=== PATIENT | male | born 1990 | race African-American/Black ===

== ENCOUNTER → 2022-01-07 | Outpatient (CLI) | payer OTHER ==
--- NOTE | 2022-01-07 15:12 | RAD ---
EXAMINATION: US THYROID INDICATION: Thyrotoxicosis. COMPARISON: None. Technique: Real-time grayscale and color Doppler imaging of the thyroid gland was performed per tam col. Findings: The right thyroid lobe measures: 5.0 x 2.6 x 2.1 cm. The left thyroid lobe measures: 5.5 x 2.3 x 2.2 cm. The isthmus measures: 7.4 mm. The thyroid parenchyma is diffusely heterogeneous and hypervascular. No discrete nodule is seen. IMPRESSION: Mildly enlarged and diffusely heterogeneous and hypervascular thyroid. This can be seen with thyroiditis. No discrete nodule for TI-RADS classification is seen. ACR TI-RADS recommendations TR5 (?7 points) - FNA if ? 1cm, follow-up if 0.5 - 0.9 cm every year for 5 years TR4 (4-6 points) - FNA if ? 1.5cm, follow-up if 1 - 1.4 cm in 1, 2, 3 and 5 years TR3 (3 points)- FNA if ? 2.5cm, follow-up if 1.5 - 2.4 cm in 1, 3 and 5 years TR2 (2 points) & TR1 (0 points) - No FNA or follow-up *Decision to biopsy should include other considerations such as patient demographics and relevant cli nical information. Reference: TIRADS 2017 J Am Yvonne Radiol 2017;14:[id number] Electronically signed by: Paty Maxwell MD (01/07/2022 3:10 PM) [id number]
== END ==
LOC: US 14:01
PROVIDERS: ATTEND Physician Assistant
DX: E05.00 Thyrotoxicosis with diffuse goiter without thyrotoxic crisis or storm (principal)
CPT/HCPCS: 76536